=== PATIENT | male | born 1980 | race Caucasian/White ===

== ENCOUNTER 2024-04-02 19:27 | Emergency (ER) | payer OTHER ==
[2024-04-02 20:35] LABS: #Basophils 0.01 10x3/uL (0.0-0.2); #Monocytes 0.74 10x3/uL (0.0-1.1); #Neutrophils 3.88 10x3/uL (1.5-8.4); %Basophils 0.2 % (0.0-2.0); %Lymphocytes 26.4 % (18.0-47.0); %Monocytes 11.2 % (0.0-10.0); %Neutrophils 58.9 % (40.0-75.0); Hematocrit 42.8 % (38.8-50.0); Hemoglobin 13.7 g/dL (13.5-17.5); Mean Corpuscular Hemoglobin 30.3 pg (27.0-33.0); Mean Corpuscular Volume 94.7 fL (81.2-95.1); Mean Platelet Volume 12.5 fL (7.4-10.4); Platelet Count 150 10x3/uL (150-450); RBC Distribution Width 14.5 % (11.5-14.5); Red Blood Cell (RBC) Count 4.52 10x6/uL (4.32-5.72); White Blood Cell (WBC) Count 6.6 10x3/uL (3.5-10.5)
[2024-04-02 20:40] LABS: INR-International Normal Ratio 1.2; Prothrombin Time 12.4 sec (9.5-12.1)
[2024-04-02 20:51] LABS: ALT (SGPT) 297 U/L (8-55); AST (SGOT) 326 U/L (5-34); Albumin 4.2 g/dL (3.5-5.0); Alkaline Phosphatase 61 U/L (40-110); Anion Gap 15 mmol/L (10-20); BUN (Urea Nitrogen) 15 mg/dL (8.9-20.6); Bilirubin, Total 0.4 mg/dL (0.2-1.2); Calc. Creatinine Clearance 0 mL/min (70-130); Calcium 9.7 mg/dL (7.8-10.44); Carbon Dioxide 25 mmol/L (22-29); Chloride 106 mmol/L (98-107); Estimated GFR 105; Globulin 3.3 g/dL (2.4-3.5); Glucose 124 mg/dL (70-105); Potassium 4.1 mmol/L (3.5-5.1); Protein, Total 7.5 g/dL (6.0-8.3); Sodium 142 mmol/L (136-145)
== END 2024-04-02 21:52 ==
LOC: CSHERS 19:27 → EEVIPCON 19:27 → CSHERS 21:52
DX: R74.01 Elevation of levels of liver transaminase levels (principal)
CPT/HCPCS: 36415; 80053; 85025; 85610; 85730; 99283